=== PATIENT | female | born 1980 | race Caucasian/White ===

== ENCOUNTER 2021-11-27 06:43 | Day surgery (SDC) | payer OTHER ==
[~2021-11-27] VITALS: Ht 154.9 cm; Wt 55.3 kg
[~2021-11-27 06:43] MED LIST: KETOROLAC60 MG/2 M1 PO; TYLENOL-CODEINE1 TAB PO
[2021-11-27] MEDS ORDERED: PERCOCET 5-3251 EACH PO (12:57)
[2021-11-27] MEDS ORDERED: IBU800 MG PO (12:57)
[2021-11-27] MEDS ORDERED: COLACE100 MG PO (12:57)
== END 2021-11-27 16:00 | disposition home or self-care (01) ==
LOC: CIR.AMB 06:43
PROVIDERS: ATTEND Student in an Organized Health Care Education/Training Program
DX: N80.1 Endometriosis of ovary (principal); Z20.822 Contact with and (suspected) exposure to COVID-19; N73.6 Female pelvic peritoneal adhesions (postinfective)